=== PATIENT | male | born 1990 ===

== ENCOUNTER 2018-04-11 23:31 | Emergency (ER) | payer SELFPAY ==
[2018-04-11 23:47] VITALS: BMI 30.9
[2018-04-12] MEDS ORDERED: Atrop/Hyosc/Scopal/PB Elixir (120 ml) PO STA (00:11)
[2018-04-12] MEDS ORDERED: Alum-Mag Hydrox-Simethicone Susp (30 mL) PO STA (00:11)
--- NOTE | 2018-04-12 00:15 | ED PDOC ---
Arrival/HPI - General Chief Complaint: Chest Pain Time Seen by Provider: 04/12/18 00:00 Historian: Patient, Family - History of Present Illness Narrative History of Present Illness (Text): 04/12/18 00:00 This 27 yo male with a pmh GERD, presents to this ED c/o worsening of burping, and chest pain x 2 hours. Patient stated he has similar symptoms in the past. Patient describes chest pain as burning. Patient admits a chronic cough for over 2 years. Patient noted he has acid reflux in his throat earlier today. Patient stated chest pain started after eating a sandwich, and falling sleep. Denies sob, abdominal pain, nausea, vomiting, urinary symptoms or abnormal gait, . Time/Duration: Other (see hpi) Quality: Burning Context: Home Past Medical History - Provider Review Nursing Documentation Reviewed: Yes - Infectious Disease Hx of Infectious Diseases: None - Tetanus Immunization Tetanus Immunization: Unknown - Cardiac Hx Cardiac Disorders: No - Pulmonary Hx Respiratory Disorders: Yes Hx Tuberculosis: Yes (more then 8 years ago) - Neurological Hx Neurological Disorder: No - HEENT Hx HEENT Disorder: No - Renal Hx Renal Disorder: No - Endocrine/Metabolic Hx Endocrine Disorders: No - Hematological/Oncological Hx Blood Disorders: No - Integumentary Hx Dermatological Disorder: No - Musculoskeletal/Rheumatological Hx Musculoskeletal Disorders: No - Gastrointestinal Hx Gastrointestinal Disorders: No - Genitourinary/Gynecological Hx Genitourinary Disorders: No - Psychiatric Hx Psychophysiologic Disorder: No Hx Substance Use: Yes (marijuana) - Anesthesia Hx Anesthesia: No Family/Social History - Physician Review Nursing Documentation Reviewed: Yes Family/Social History: Other (noncontributory) Smoking Status: Never Smoked Hx Alcohol Use: No (prior) Hx Substance Use: Yes (marijuana) Allergies/Home Meds Allergies/Adverse Reactions: Allergies No Known Allergies Allergy (Verified 04/11/18 23:46) Review of Systems - Review of Systems Constitutional: Normal. absent: Fatigue, Weight Change, Fevers, Night Sweats Eyes: Normal ENT: Normal Respiratory: Cough (chronic dry cough). absent: SOB, Sputum, Wheezing Cardiovascular: Chest Pain (CP is like burning pain, pointing at distal esophagus area) Gastrointestinal: Normal. absent: Abdominal Pain, Nausea, Vomiting Genitourinary Male: Normal. absent: Dysuria, Frequency, Hematuria Musculoskeletal: Normal Skin: Normal. absent: Rash Neurological: Normal. absent: Headache, Dizziness Endocrine: Normal Hemo/Lymphatic: Normal Psychiatric: Normal Physical Exam Vital Signs Temp Pulse Resp BP Pulse Ox 04/12/18 01:00 65 18 129/69 96 04/11/18 23:46 98.3 F 04/11/18 23:40 86 17 110/62 98 Temperature: Afebrile Blood Pressure: Normal Pulse: Regular Respiratory Rate: Normal Appearance: Positive for: Well-Appearing, Non-Toxic, Comfortable Pain Distress: None Mental Status: Positive for: Alert and Oriented X 3 - Systems Exam Head: Present: Atraumatic, Normocephalic Pupils: Present: PERRL Extroacular Muscles: Present: EOMI Conjunctiva: Present: Normal Mouth: Present: Moist Mucous Membranes Pharnyx: Present: Normal. No: ERYTHEMA, EXUDATE, TONSILS ENLARGED Neck: Present: Normal Range of Motion. No: Meningeal Signs Respiratory/Chest: Present: Clear to Auscultation, Good Air Exchange. No: Respiratory Distress, Accessory Muscle Use, Wheezes, Decreased Breath Sounds, Rales, Retracting, Rhonchi, Tachypneic Cardiovascular: Present: Regular Rate and Rhythm, Normal S1, S2. No: Murmurs Abdomen: No: Tenderness, Distention, Peritoneal Signs Back: Present: Normal Inspection Upper Extremity: Present: Normal Inspection, Normal ROM. No: Cyanosis, Edema Lower Extremity: Present: Normal Inspection, Normal ROM. No: Edema Neurological: Present: GCS=15, CN II-XII Intact, Speech Normal, Motor Func Grossly Intact, Normal Cerebellar Funct, Gait Normal, Memory Normal Skin: Present: Warm, Dry, Normal Color. No: Rashes Psychiatric: Present: Alert, Oriented x 3, Normal Insight, Normal Concentration Medical Decision Making ED Course and Treatment: 04/12/18 01:24 Re-evaluation. Patient feels better. Discussed results and plan with patient who expresses understanding. All questions answered and there is agreement with the plan to discharge home with instructions. Patient stable for discharge. Return if symptoms persist or worsen. Patient tolerated PO fluids, and crackers. Re-evaluation Time: 01:24 Reassessment Condition: Re-examined, Improved - RAD Interpretation Narrative RAD Interpretations (Text): 04/12/18 01:24 Chest x-rays: NAD Radiology Orders: 04/12/18 00:10 CHEST TWO VIEWS (PA/LAT) [RAD] Stat - EKG Interpretation Interpreted by ED Physician: Yes (NSR @ [address] changes) Type: 12 lead EKG Comparison: No previous EKG avail. - Medication Orders Current Medication Orders: Discontinued Medications Al Hydrox/Mg Hydrox/Simethicone (Maalox Plus 30 Ml) 30 ml PO STAT STA Stop: 04/12/18 00:12 Last Admin: 04/12/18 00:24 Dose: 30 ml Belladonna/Phenobarbital ( Elixir) 5 ml PO STAT STA Stop: 04/12/18 00:12 Last Admin: 04/12/18 00:23 Dose: 5 ml Lidocaine HCl (Lidocaine 2% Viscous) 5 ml PO STAT STA Stop: 04/12/18 00:11 Last Admin: 04/12/18 00:23 Dose: 5 ml Disposition/Present on Arrival - Present on Arrival Any Indicators Present on Arrival: No History of DVT/PE: No History of Uncontrolled Diabetes: No Urinary Catheter: No History of Decub. Ulcer: No History Surgical Site Infection Following: None - Disposition Have Diagnosis and Disposition been Completed?: Yes Diagnosis: Esophagitis Disposition: HOME/ ROUTINE Disposition Time: :29 Patient Plan: Discharge Patient Problems: Current Active Problems Problem Status Onset Esophagitis Acute Condition: GOOD Discharge Instructions (ExitCare): Acid Reflux (Gastroesophageal Reflux Disease ), Adult (DC) Additional Instructions: Call private doctor for follow up visit in 1-2 days. Take medication as instructed. Return to emergency if symptoms worsen Prescriptions: Famotidine [Pepcid] 40 mg PO DAILY #30 tablet Sucralfate [Carafate] 1 gm PO DAILY #30 tab Referrals: Evelyn Arguelles MD [Staff Provider] - Follow up with primary [facility] [Outside] - Follow up with primary Forms: [employer] (Guyanese)
[2018-04-12 01:24] VITALS: RESP 18
[2018-04-12 02:24] VITALS: BP 114/69; PULSE 67; TEMP 97.4; O2SAT 100
--- NOTE | 2018-04-12 10:35 | RAD ---
Date of service: 04/12/2018 HISTORY: 09/12/2016 COMPARISON: No prior. TECHNIQUE: Chest PA and lateral FINDINGS: LUNGS: No active pulmonary disease. PLEURA: No significant pleural effusion identified. No pneumothorax apparent. CARDIOVASCULAR: Normal. OSSEOUS STRUCTURES: No significant abnormalities. VISUALIZED UPPER ABDOMEN: Normal. OTHER FINDINGS: None. IMPRESSION: No active disease. No significant interval change compared to the prior examination(s). Concordant results with the preliminary interpretation rendered by the emergency department physician procedure.
--- NOTE | 2018-04-12 20:33 | CARD ---
APPROVED REPORT Date of service: 04/11/2018 EKG Measurement Heart [id number] <Conclusion> Normal sinus rhythm Possible Lateral infarct, age undetermined Abnormal ECG
== END 2018-04-12 01:45 | disposition home or self-care (01) ==
LOC: ED 23:31
DX: K20.9 Esophagitis, unspecified (principal)